=== PATIENT | female | born 1965 | race Caucasian/White ===

== ENCOUNTER 2016-10-27 10:06 | Emergency (ER) | payer SELFPAY ==
[~2016-10-27 10:06] MED LIST: ALBUTEROL17 GM INH; BENZONATATE PO; DOXYCYCLINE HY100 M1 PO; NO MEDICATIONS; PREDNISONE PO
== END 2016-10-27 10:23 | disposition home or self-care (01) ==
LOC: SED 10:06
DX: H10.11 Acute atopic conjunctivitis, right eye (principal); F17.200 Nicotine dependence, unspecified, uncomplicated; Z88.5 Allergy status to narcotic agent
CPT/HCPCS: 99283